=== PATIENT | female | born 1980 | race Caucasian/White ===

== ENCOUNTER 2018-10-06 13:29 | Emergency (ER) | payer OTHER ==
[~2018-10-06] VITALS: Ht 162.6 cm; Wt 78.6 kg
--- NOTE | 2018-10-06 13:51 | NUR ---
PT. IS A & O X 4 WITH C/O AN ALLERGIC REACTION TO AN UNK SUBSTANCE THAT SHE ATE AT A WORK [employer]. PT. WAS MEDICATED ORDERED. VSS. PT. HAS THE PULSE OX AND BP CUFF IN PLACE. PT.'S RESP ARE EUPNEIC AT THIS TIME.
[2018-10-06] MEDS ORDERED: DIPHENHYDRAMINE 25 MG CAPSULE PO ONE (14:30)
[2018-10-06] MEDS ORDERED: FAMOTIDINE 20 MG TABLET PO ONE (14:30)
[2018-10-06] MEDS ORDERED: IBUPROFEN 600 MG TABLET ONE (14:53)
[2018-10-06] MEDS ORDERED: DIPHENHYDRAMINE 25 MG CAPSULE ONE (14:53)
[2018-10-06] MEDS ORDERED: FAMOTIDINE 20 MG TABLET ONE (14:53)
--- NOTE | 2018-10-06 14:57 | NUR ---
PT. HAS C/O MIRELES PAIN. PT. WAS MEDICATED ORDERED. VSS. PULSE OX REMAINS IN PLACE WITH RESP EUPNEIC AND SATS 99% ON RA.
[2018-10-06] MEDS ORDERED: IBUPROFEN 600 MG TABLET PO ONE (15:00)
--- NOTE | 2018-10-06 17:08 | NUR ---
PT. STATES SHE FEELS BETTER. PT. WAS GIVEN DISCHARGE INSTRUCTIONS AND SCRIPTS WITH UNDERSTANDING VERBALIZED ALONG WITH WILLINGNESS TO COMPLY. PT. WAS AMBULATORY TO THE DISCHARGE DESK. VSS.
[2018-10-06 17:09] VITALS: BP 106/82
== END 2018-10-06 17:12 | disposition home or self-care (01) ==
LOC: ED 14:02
DX: T78.3XXA Angioneurotic edema, initial encounter (principal); X58.XXXA Exposure to other specified factors, initial encounter; Y93.89 Activity, other specified; Y92.89 Other specified places as the place of occurrence of the external cause; Y99.8 Other external cause status
CPT/HCPCS: 70360; 70490; 99284; J7512; Q0163

== ENCOUNTER 2019-05-25 14:17 | Emergency (ER) | payer OTHER ==
[~2019-05-25] VITALS: Ht 162.6 cm; Wt 81.9 kg
--- NOTE | 2019-05-25 14:47 | NUR ---
THIS IS A 38 YO FEMALE COMING IN FOR 910 CONSTANT LOW BACK PAIN WROSENING THIS MORNING, PT HAS HX OF LBP FOR 3 WEEKS, SAW PCP, XRAYS TAKEN PREVIOUSLY INDICATING ARTHRITIS IN SPINE WELL SPURRING. PATIENT ALSO C/O EPIGATRIC PAIN THAT IS CONSTANT AT 5/10 WITH NAUSEA. PATIENT IS IN NSR BUT TACHYCARDIC IN 120-130, ON SPECIALTY THERAPIST. ON CONTINUOUS SPO2 AT 99% ON RA, CYCLE BP Q1HR. CALL LIGHT IN REACH.
[2019-05-25] MEDS ORDERED: BUSP10TA PO (14:54)
[2019-05-25] MEDS ORDERED: HYDROcodone/APAP 5/325 TABLET ONE (15:14)
--- NOTE | 2019-05-25 15:19 | NUR ---
PATIENT MEDICATED PER EMAR, TOLERATED WELL. 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 CALL LIGHT IN REACH.
[2019-05-25] MEDS ORDERED: HYDROcodone/APAP 5/325 TABLET PO ONE (15:30)
[2019-05-25 15:37] LABS: BASOPHILS # (AUTO) 0.01 x10^3/uL (0-0.1); BASOPHILS % (AUTO) 0 % (0-1); EOSINOPHILS # (AUTO) 0.01 x10^3/uL (0-0.4); EOSINOPHILS % (AUTO) 0 % (1-7); LYMPHOCYTES # (AUTO) 0.81 x10^3/uL (1-3.4); LYMPHOCYTES % (AUTO) 8 % (22-44); MD NO; MEAN CORPUSCULAR HEMOGLOBIN 30.3 pg (27.0-34.8); MEAN CORPUSCULAR HGB CONC 33.6 g/dL (32.4-35.8); MEAN CORPUSCULAR VOLUME 90.1 fL (80-100); MEAN PLATELET VOLUME 9.9 fL (7.4-10.4); MONOCYTES # (AUTO) 0.12 x10^3/uL (0.2-0.8); MONOCYTES % (AUTO) 1 % (2-9); NEUTROPHILS # (AUTO) 9.53 x10^3/uL (1.8-6.8); NEUTROPHILS % (AUTO) 91 % (42-75); PLATELET COUNT 216 x10^3/uL (130-400); RED BLOOD COUNT 5.13 x10^6/uL (3.82-5.3); RED CELL DISTRIBUTION WIDTH 13.2 % (9.6-15.2)
[2019-05-25 15:45] LABS: ALBUMIN 3.5 g/dL (3.4-5.0); ANION GAP 8 mmol/L (5-15); CALCIUM 8.9 mg/dL (8.5-10.1); CHLORIDE 106 mmol/L (98-107); CREATININE 0.84 mg/dL (0.55-1.02)
[2019-05-25 15:49] LABS: FREE T4 (FREE THYROXINE) 1.11 ng/dL (0.76-1.46); TROPONIN I < 0.015 ng/mL (0.000-0.045)
[2019-05-25] MEDS ORDERED: SODIUM CHLORIDE FLUSH 10ML SYR IVF ONE (16:30)
[2019-05-25 17:14] VITALS: BP 114/79
--- NOTE | 2019-05-25 17:41 | NUR ---
BEDSIDE REPORT GIVEN TO JENNY MARLEY. PLAN OF CARE DISCUSSED.
--- NOTE | 2019-05-25 17:42 | NUR ---
REPORT RECEIVED FROM RADHA ALVARADO. ASSUMED PT CARE
[2019-05-25] MEDS ORDERED: OMNIPAQUE 350 MG/ML, 100ML BOTTLE ONE (18:03)
== END 2019-05-25 18:55 | disposition home or self-care (01) ==
LOC: ED 15:13
DX: G89.29 Other chronic pain (principal); M54.2 Cervicalgia; M54.6 Pain in thoracic spine; R00.0 Tachycardia, unspecified
CPT/HCPCS: 36415; 71045; 71275; 80048; 82040; 84439; 84443; 84484; 85025; 85379; 93005; 99284; Q9967

== ENCOUNTER 2019-07-02 11:38 | Emergency (ER) | payer OTHER ==
[~2019-07-02 11:38] MED LIST: BUSP10TA PO
== END 2019-07-02 13:53 | disposition left against medical advice (07) ==
LOC: ED 11:51
DX: M54.9 Dorsalgia, unspecified (principal); M54.2 Cervicalgia; Z53.21 Procedure and treatment not carried out due to patient leaving prior to being seen by health care provider

== ENCOUNTER → 2019-07-31 | Outpatient (CLI) | payer OTHER | END | disposition home or self-care (01) | LOC: RAD 14:25 | PROVIDERS: ATTEND Registered Nurse | DX: M51.17 Intervertebral disc disorders with radiculopathy, lumbosacral region (principal); M50.121 Cervical disc disorder at C4-C5 level with radiculopathy; M50.122 Cervical disc disorder at C5-C6 level with radiculopathy; M48.02 Spinal stenosis, cervical region; M25.78 Osteophyte, vertebrae; M19.90 Unspecified osteoarthritis, unspecified site | CPT/HCPCS: 72040; 72120; 72141; 72148 ==